=== PATIENT | female | born 1960 | race Caucasian/White ===

== ENCOUNTER 2022-05-11 18:15 | Emergency (ER) | payer OTHER ==
[~2022-05-11] VITALS: Ht 172.7 cm; Wt 73.5 kg
--- NOTE | 2022-05-11 19:40 | NUR ---
@[id number] PT KIERRA [id number] From Home "Alcohol Intoxication" Received PT in bed; A/Ox3. Stated she drank "too much Vodka." Resp even and non labored. Safety Measures in place.
[2022-05-11] MEDS ORDERED: IV NS 0.9% 500 ML BAG IV ONE (20:00)
[2022-05-11] MEDS ORDERED: IV NS 0.9% 1,000 ML BAG IV ONE (20:00)
--- NOTE | 2022-05-11 20:17 | NUR ---
R MARIBEL #20G S/L BLOOD COLLECTED AND SENT TO LAB
[2022-05-11] MEDS ORDERED: ONDANSETRON HCL/PF 4 MG/2 ML VIAL ONE (21:46)
[2022-05-11] MEDS ORDERED: ONDANSETRON HCL/PF - ER 4 MG/2 ML VIAL IV ONE (22:00)
--- NOTE | 2022-05-11 23:57 | NUR ---
PT AMBULATORY TO RESTROOM WITH STEADY GAIT
--- NOTE | 2022-05-12 04:04 | NUR ---
Patient discharged to home in stable condition via taxi. Written and verbal after care instructions given. Patient verbalizes understanding of instruction. PT ambulatory with a steady gait
[2022-05-12 04:05] VITALS: BP 149/83
== END 2022-05-12 04:05 | disposition home or self-care (01) ==
LOC: ER 20:54
DX: F10.129 Alcohol abuse with intoxication, unspecified (principal); Y90.8 Blood alcohol level of 240 mg/100 ml or more
CPT/HCPCS: 99283; 96374; 96361; 36415; 80320; J2405 ×2; J7030; J7040; G0480